=== PATIENT | male | born 1930 ===

== ENCOUNTER 2017-03-06 14:17 | Inpatient (IN) ==
[2017-03-06 15:10] LABS: Basophils % 0.2 % (0.0-0.8); Hematocrit 41.1 VOL% (42.0-52.0); Hemoglobin 13.8 GM/DL (14.0-18.0); Immature Granulocytes % 0.5 %; Immature Granulocytes Absolute 0.06 #; Lymphocytes # 0.5 10*3/uL (1.4-4.0); Lymphocytes % 4.2 % (21.2-54.2); Mean Corpuscular HGB Conc 33.6 GM/DL (32-36); Mean Corpuscular Hemoglobin 31 PG (27-34); Mean Corpuscular Volume 93.4 FL (87-102); Mean Platelet Volume 10.5 FL (9.6-12.0); Monocytes # 0.5 10*3/uL (0.11-0.8); Monocytes % 3.8 % (1.7-12.7); Neutrophils # 11.5 10*3/uL (1.4-7.4); Neutrophils % 91.3 % (38.7-73.9); Platelet Count 102 T/CUMM (130-400); Red Cell Distribution Width 15.3 % (9.3-17.3); White Blood Count 12.6 T/CUMM (4-12)
--- NOTE | 2017-03-06 15:15 | XRay Report ---
Single view the chest. Indication: Shortness of breath. Comparison: January 22, 2016. The heart is enlarged. Post median sternotomy. There is calcific plaque present within the aortic knob. The pulmonary vasculature is prominent. The interstitial lung markings are prominent. There are bilateral right greater than left pleural effusions. Mild atelectasis in the right lung base. Impression: Findings of congestive heart failure and mild right basilar atelectasis. PROCEDURE INTERPRETED AT [facility] DEPARTMENT OF RADIOLOGY Final Report Signed by: Dr. Nunu Pierre
[2017-03-06 15:27] LABS: Albumin 2.7 G/DL (3.4-5.0); Bilirubin,Total 1.3 MG/DL (0.2-1.0); Calcium 8.7 MG/DL (8.5-10.1); Osmolality,Calculated 285.4 MOS/KG (273-304); Total Protein 6.4 G/DL (6.4-8.3)
--- NOTE | 2017-03-06 15:32 | Ultrasound Report ---
Bilateral lower extremity venous Doppler with lombardi scale, Spectral Doppler and color-flow analysis performed and interpreted. Indication: Leg swelling Scanning over both common femoral veins, superficial femoral veins, greater saphenous veins and popliteal veins demonstrates normal compressibility, color flow, and augmentation. Impression: No evidence of DVT seen in either lower extremity. The Ultrasound images were captured and stored. PROCEDURE INTERPRETED AT [facility] DEPARTMENT OF RADIOLOGY Final Report Signed by: Dr. Nunu Pierre
--- NOTE | 2017-03-06 17:07 | Hospitalist History & Physical ---
<Bairon Persaud - Last Filed: 03/06/17 17:05> Assessment and Plan (1) Leukocytosis Status: Acute Assessment and plan: WBC slightly elevated. Daily CBC. Obtain blood cultures. UA.Lower extremity edema may be source. Consult wound care. Start empiric antibiotics. Current Visit: Yes (2) CHF (congestive heart failure) Status: Acute Assessment and plan: BNP > 5000. CXR showed chf. IV lasix ordered. Echo ordered. Current Visit: Yes (3) HTN (hypertension) Status: Acute Assessment and plan: Pt. stable Current Visit: No (4) Lower extremity edema Status: Acute Assessment and plan: Questionable cellulitis. Treat with IV antibiotics. Consult wound care Current Visit: Yes (5) JAKE (acute kidney injury) Status: Acute Assessment and plan: Daily BMPs. Renal us. Order UA. Current Visit: Yes History of Present Illness Chief complaint: right leg edema History of present illness: Mr. Aguilar is a 86 year old male who was transferred to the ED via EMS from [facility] for further evaluation of right leg pain sudden onset of last night. Pt. states that he has been having problems with fluid buildup for quite some time however last night the right leg worsened. 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 At that point he was unable to move his leg and stated that he was barely able to walk. Patient denies any shortness of breath, cough, chest pain , or vomiting but report mild nausea. Pt. denies any complaints at this time. On evaluation in the ED, abnormal labs include WBC of 12.6, BUN 32, creatinine 1.4, and BNP greater than 5000. Chest x-ray revealed congestive heart failure and mild right basilar atelectasis. An ultrasound was also ordered to rule out DVT. It was negative. Patient's case has been discussed with Dr. Cody in fast track and Dr. Baker hospitalist. Pt will be admitted to the hospitalist service for further evaluation and treatment of bilateral lower extremity edema , CHF exacerbation, and acute kidney injury. CODE STATUS has been discussed with patient and he has chosen to be a full code. Home Medications Medication Instructions Recorded Confirmed Type RX: Aspirin [Ecotrin] 325 mg PO DAILY 01/22/16 01/22/16 History RX: Atorvastatin [Lipitor] 40 mg PO BEDTIME 01/22/16 01/22/16 History RX: Brimonidine 0.15% Oph Soln 1 drops BOTH EYES BID 01/22/16 01/22/16 History [Alphagan P 0.15% Oph Soln] RX: Cholecalciferol (Vitamin D3) 50,000 unit PO DIRECTED 01/22/16 01/22/16 History [Vitamin D3] RX: Colesevelam [Welchol] 1,875 mg PO BID W/MEALS 01/22/16 01/22/16 History RX: Dorzolamide/Timolol Oph Soln 1 drop BOTH EYES BID 01/22/16 01/22/16 History [Cosopt] RX: Finasteride 5 mg PO DAILY 01/22/16 01/22/16 History RX: Mupirocin 2% Oint [Bactroban 1 applic TOP TID 01/22/16 01/22/16 History 2% Oint] RX: Polyethylene Glycol Powder 17 gm PO DAILY 01/22/16 01/22/16 History [Miralax] RX: Tamsulosin [Flomax] 0.4 mg PO DAILY 01/22/16 01/22/16 History RX: Triamcinolone 0.1% Cream 1 applic TOP BID PRN 01/22/16 01/22/16 History [Kenalog 0.1% Cream] RX: Brimonidine 0.15% Oph Soln 1 drop BOTH EYES BID ophthalmic 01/25/16 Rx [Alphagan P 0.15% Oph Soln] solution RX: Carvedilol [Coreg] 3.125 mg PO BID #60 tablet 01/25/16 Rx RX: Diphenoxylate/Atrop 2.5-0.025 1 tablet PO Q4H PRN #20 tablet 01/25/16 Rx [Lomotil Tab] RX: Dorzolamide/Timolol Oph Soln 1 drop BOTH EYES BID ophthalmic 01/25/16 Rx [Cosopt] solution RX: Lisinopril [Prinivil] 5 mg PO DAILY #30 tablet 01/25/16 Rx Allergies Allergy/AdvReac Type Severity Reaction Status Date / Time No Known Allergies Allergy Verified 01/22/16 12:19 Medical,Surgical,& Family Hx - Medical History Cardio: History of: Cardiac Dysrhythmia (afib), Hypertension Endocrine: History of: Dyslipidemia - Family History Family History: noncontributory - Social History Smoking Status: Never smoker Frequency of Alcohol Use: None Marital Status: Single Lives With:: Alone Functional capacity: independent ambulation 12 point system: reviewed and no additional remarkable complaints except as stated - Constitutional Constitutional: Absent: chills, fever(s) - EENT Ears: Present: decreased hearing - Cardiovascular Cardiovascular: Absent: chest pain at rest - Respiratory Respiratory: Absent: cough - Genitourinary Genitourinary: Present: difficulty urinating - Neurological Neurological: Present: confusion, memory loss Exam - Constitutional Vitals: Period Temp Pulse Resp BP Sys/[place]un[place] Pulse Ox Last 24 Hr 99.1 F 72 20 126/54 97 General appearance: normal weight, no acute distress - Head Head exam: Present: normal inspection, normocephalic - Eye Eye exam: Present: EOMI Pupils: Present: CHARITY - ENT ENT exam: Present: normal exam - Respiratory Respiratory exam: Present: clear to auscultation bilaterally. Absent: wheezes - Cardiovascular Cardiovascular exam: Present: bradycardia - GI/Abdominal GI/Abdominal exam: Present: normal bowel sounds, soft. Absent: tenderness - Extremities Exam Extremities exam: Present: normal capillary refill, edema (right greater than left. pt has pitting edema noted.). Absent: normal inspection - Neurological Exam Neurological exam: Present: alert, oriented X3 - Psychiatric Psychiatric exam: Present: normal affect, normal mood - Skin Skin exam: Present: normal color, warm, other (BLE are warm to touch; RLE is reddened. 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 Patient presents with increased BLE edema. Being admitted with CHF exacerbation. BNP is elevated. Patient is also noted to have a mild leukocytosis and warmth and redness to his BLE, R>L. Will start teflaro. Patient also noted to have JAKE. Last creatinine in our system one year ago was normal. Will admit to telemetry. Start IV lasix. Obtain echo. Exam - Constitutional Vitals: Period Temp Pulse Resp BP Sys/Lagunas Pulse Ox Last 24 Hr 99.1 F-99.1 F 72-72 20-20 126-126/54-54 97 Results - Labs CBC & BMP: 03/06/17 15:01 03/06/17 15:01
[2017-03-06] MEDS ORDERED: ACETAMINOPHEN 325 MG TABLET PO PRN (19:40)
[2017-03-06 20:39] LABS: Apearance,Urine Slightly Hazy (Clear); Bacteria,Urine Occasional /HPF (Few); Bilirubin,Urine Negative (Negative); Blood, Urine Negative (Negative); Glucose,Urine (UA) Negative (Negative); Ketones,Urine Negative (Negative); Mucus,Urine Occasional /LPF (Occasional); Nitrite,Urine Negative (Negative); Protein,Urine 30 MG/DL; RBC,Urine 1 /HPF (0-4); Sperm,Urine Occasional /HPF (Negative); Squamous Epithelial Cell,Urine Occasional /HPF (0-10); Urine Color Yellow (Yellow); Urine Specific Gravity 1.015 (1.001-1.035); Urine Urobilinogen < 2.0 EU/DL (0.2-1.0); WBC,Urine 1 /HPF (0-6)
[2017-03-06] MEDS: CEFTAROLINE 600 MG in SODIUM CHLORIDE 0.9% 100 ML IV SCH (21:44)
[2017-03-07 06:10] LABS: Basophils % 0.2 % (0.0-0.8); Hematocrit 41.8 VOL% (42.0-52.0); Immature Granulocytes % 0.7 %; Immature Granulocytes Absolute 0.09 #; Lymphocytes # 0.6 10*3/uL (1.4-4.0); Mean Corpuscular HGB Conc 33.5 GM/DL (32-36); Mean Corpuscular Hemoglobin 31 PG (27-34); Mean Corpuscular Volume 92.7 FL (87-102); Mean Platelet Volume 11.2 FL (9.6-12.0); Monocytes # 0.7 10*3/uL (0.11-0.8); Monocytes % 5.5 % (1.7-12.7); Neutrophils # 11.2 10*3/uL (1.4-7.4); Neutrophils % 88.6 % (38.7-73.9); Platelet Count 101 T/CUMM (130-400); Red Blood Count 4.51 MC/CUMM (3.8-5.5); Red Cell Distribution Width 15.6 % (9.3-17.3); White Blood Count 12.6 T/CUMM (4-12)
[2017-03-07 06:52] LABS: Calcium 8.4 MG/DL (8.5-10.1); Magnesium 2.1 MG/DL (1.8-2.4); Osmolality,Calculated 289.1 MOS/KG (273-304); Potassium 4.2 MMOL/L (3.5-5.1); Risk Ratio 1.83; Thyroid Stimulating Hormone 0.464 uIU/ml (0.358-3.74); VLDL CHOLESTEROL 14.8 MG/DL
[2017-03-07 08:13] LABS: Band Neutrophils 24 % (0-10); Lymphocytes 2 % (20-55); Segmented Neutrophils 71 % (50-85); Total Cells Counted 100
[2017-03-07 08:14] LABS: Burr Cells 2+; Hypochromasia 1+; Platelet Estimate Decreased
[2017-03-07] MEDS: CEFTAROLINE 600 MG in SODIUM CHLORIDE 0.9% 100 ML IV SCH ×2 (09:27→22:01)
[2017-03-07] MEDS: FUROSEMIDE 40 MG/4 ML VIAL IV SCH ×2 (09:28→16:38)
--- NOTE | 2017-03-07 10:09 | EKG Report ---
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 : 1930 Requested by: Bairon Persaud Order Number: [id number] Reading MD: FREEMAN BETANCUR Intervals [place] Rate: 81 P: 79 TN: 130 QRS: 126 QRSD: 113 T: -73 QT: 410 QTc: 447 Interpretive Statements SINUS RHYTHM WITH OCCASIONAL SUPRAVENTRICULAR PREMATURE COMPLEXES MODERATE INTRAVENTRICULAR CONDUCTION DELAY POSSIBLE RIGHT VENTRICULAR HYPERTROPHY ST DEVIATION AND MODERATE T-WAVE ABNORMALITY, CONSIDER LATERAL ISCHEMIA ST DEVIATION AND MODERATE T-WAVE ABNORMALITY, CONSIDER INFERIOR ISCHEMIA Electronically Signed On 03-07-17 11:22:14 CDT by FREEMAN BETANCUR [email or web address]
--- NOTE | 2017-03-07 14:53 | Ultrasound Report ---
Bilateral renal ultrasound Indication: Bilateral renal masses. Comparison: January 22, 2016. Also, a remote exam from March 01, 2008. The kidneys are normal in size. The right kidney measures 12.0 x 5.7 x 6.2 cm in the left measures 9.3 x 4.6 x 3.4 cm. At the midpole of the right kidney there is a 3.5 x 2.8 cm cyst, and a 1.2 x 1.5 cm cyst. At the lower pole of the right kidney there is a 4.6 x 5.2 x 4.7 cm cyst. Superior to the right kidney, and separate from it, there is a 3.9 x 4.1 x 3.6 cm solid mass. This was present on the previous CT of January 22, 2016, and measured 4.4 x 3.7 cm at that time. Therefore, in the 1 year since the previous exam, it has not grown significantly. It was visible on the 2007 exam, and measured significantly smaller at 18 mm. The left kidney contains a 1.9 x 2.1 cm cyst, and a 2.7 x 2.5 cm solid mass. This solid mass has features suspicious for renal cell carcinoma, and it has not changed significantly in size. It was not present on the 2008 exam. No hydronephrosis. No nephrolithiasis. Impression: There is a nonspecific solid mass superior to the right kidney, which has been shown to be separate from the kidney and adrenal gland on previous CT. This mass is gradually increasing in size compared to 2008, but is stable compared to last year. There is a solid mass having features suspicious for renal cell at the lower pole of the left kidney, which has not changed in size. The Ultrasound images were captured and stored. PROCEDURE INTERPRETED AT [facility] DEPARTMENT OF RADIOLOGY Final Report Signed by: Dr. Nunu Pierre
--- NOTE | 2017-03-07 17:51 | Hospitalist Progress Note ---
Assessment and Plan (1) Renal mass Status: Acute Assessment and plan: Present on multiple previous imaging studies, CT A/P 01/2016 with multiple probable renal cyst but also with a solid enhancing lesion of the left kidney suspicious for neoplastic process Patient denies any knowledge of this although discharge summary at that time reports that urology was consulted and he was to follow-up with them in clinic Will re-consult urology Current Visit: Yes (2) HTN (hypertension) Status: Acute Current Visit: No (3) Dyslipidemia Status: Acute Current Visit: No (4) CHF (congestive heart failure) Status: Acute Assessment and plan: Repeat BNP in the morning Clinically improving Current Visit: Yes (5) Leukocytosis Status: Acute Assessment and plan: Possible cellutitis, continue teflaro Current Visit: Yes (6) Right hip pain Status: Acute Assessment and plan: x-ray Current Visit: Yes Hospitalist: Subjective Interval history: No acute events overnight. He reports that his legs feel a little better but now reports a right hip pain and a fall about a week ago. Exam - Constitutional Vitals: Period Temp Pulse Resp BP Sys/Lagunas Pulse Ox Last 24 Hr 98.7 F-100.4 F 68-88 16-20 120-152/51-84 88-97 General appearance: normal weight - Head Head exam: Present: normocephalic, atraumatic - Eye Eye exam: Present: EOMI Pupils: Present: CHARITY - ENT ENT exam: Present: normal exam - Neck Neck exam: Present: normal inspection - Respiratory Respiratory exam: Present: clear to auscultation bilaterally. Absent: rhonchi, wheezes - Cardiovascular Cardiovascular exam: Present: regular rate and rhythm - GI/Abdominal GI/Abdominal exam: Present: normal bowel sounds, soft. Absent: tenderness, rebound - Extremities Exam Extremities exam: Present: edema - Back Exam Back exam: Present: normal inspection - Neurological Exam Neurological exam: Present: alert, oriented X3 - Psychiatric Psychiatric exam: Present: normal affect, normal mood - Skin Skin exam: Present: warm, intact Results - Labs CBC & BMP: 03/07/17 04:55 03/07/17 04:55
--- NOTE | 2017-03-07 18:58 | XRay Report ---
AP pelvis with 2 additional views of the right hip. Indication: Fall a few days ago, with persistent pain. Degenerative changes are noted in the lower lumbar spine. There is a right iliac stent. Vascular calcifications are noted. There is narrowing of the inferior medial hip joint spaces bilaterally. There is acetabular spurring. The femoral head contours are well maintained. There is linear lucency suspicious for acute nondisplaced fracture through the right ischiopubic ramus. The pubic symphysis and SI joints are of normal width. Impression: Findings suspicious for nondisplaced acute fracture through the right ischiopubic ramus. PROCEDURE INTERPRETED AT [facility] DEPARTMENT OF RADIOLOGY Final Report Signed by: Dr. Nunu Pierre
[2017-03-07] MEDS: ATORVASTATIN 40 MG TABLET PO SCH (22:02)
[2017-03-07] MEDS: COLESEVELAM 625 MG TABLET PO SCH (22:02)
[2017-03-07] MEDS: CARVEDILOL 3.125 MG TABLET PO SCH (22:02)
[2017-03-08 06:15] LABS: Basophils % 0.3 % (0.0-0.8); Eosinophils % 0.1 % (0.00-10.9); Hematocrit 40.7 VOL% (42.0-52.0); Hemoglobin 13.7 GM/DL (14.0-18.0); Immature Granulocytes % 0.5 %; Immature Granulocytes Absolute 0.06 #; Lymphocytes # 0.7 10*3/uL (1.4-4.0); Lymphocytes % 5.9 % (21.2-54.2); Mean Corpuscular HGB Conc 33.7 GM/DL (32-36); Mean Corpuscular Hemoglobin 31 PG (27-34); Mean Corpuscular Volume 91.7 FL (87-102); Mean Platelet Volume 11.6 FL (9.6-12.0); Monocytes # 0.7 10*3/uL (0.11-0.8); Monocytes % 6.5 % (1.7-12.7); Neutrophils # 9.7 10*3/uL (1.4-7.4); Neutrophils % 86.7 % (38.7-73.9); Platelet Count 101 T/CUMM (130-400); Red Blood Count 4.44 MC/CUMM (3.8-5.5); White Blood Count 11.2 T/CUMM (4-12)
[2017-03-08 06:55] LABS: Calcium 8.1 MG/DL (8.5-10.1); Magnesium 1.9 MG/DL (1.8-2.4); Osmolality,Calculated 287.4 MOS/KG (273-304); Potassium 2.9 MMOL/L (3.5-5.1)
[2017-03-08 08:02] LABS: Hypochromasia Slight; Microcytosis Slight
--- NOTE | 2017-03-08 08:54 | ECHO Report ---
Aquiles Aguilar Exam Date: 03/07/2017 08:29 Referring Physician: Technologist: devin Reid ARDMS, RVT Age: 86 Ht (in): 73 Wt (lb): 164 Gender: M Exam Location: [facility] Echo Indications: Essential (primary) hypertension, CHF, Lower extremity edema, JAKE, Leukocytosis BP: 136 / 84 HR: 80 Rhythm: Sinus Technical Quality: Good IMPRESSIONS Mildly increased left ventricular cavity size. Normal left ventricular wall thickness. Left ventricular ejection fraction is estimated at 30 %. Mildly increased right ventricular size. The right atrium is mildly enlarged. The left atrium is mildly enlarged. Moderately thickened mitral valve. Mild-moderate mitral valve regurgitation. The aortic valve is trileaflet and has normal motion. Mild aortic valve calcification. No aortic valve stenosis. No aortic valve regurgitation. Thickened tricuspid valve. [id number] tricuspid valve regurgitation. Tricuspid regurgitation velocities suggest a PAP of 80 mmHg. Morphologically normal pulmonic valve. Moderate pulmonary valve stenosis. Normal pericardium without effusion. Normal ascending aorta dimension. MEASUREMENTS (Male / Female) Normal Values 2D ECHO LV Diastolic Diameter PLAX 6.0 cm 4.2 - 5.9 / 3.9 - 5.3 cm LV Systolic Diameter PLAX 5.2 cm LV Fractional Shortening PLAX 14.0 % IVS Diastolic Thickness 0.7 cm 0.6 - 1.0 / 0.6 - 0.9 cm LVPW Diastolic Thickness 1.0 cm 0.6 - 1.0 / 0.6 - 0.9 cm RV Internal Dim ED PLAX 4.0 cm Aortic Root Diameter 3.5 cm LA Systolic Diameter LX 4.7 cm 3.0 - 4.0 / 2.7 - 3.8 cm DOPPLER TR Peak Velocity 417.0 cm/s TR Peak Gradient 69.6 mmHg FINDINGS Left Ventricle Mildly increased left ventricular cavity size. Normal left ventricular wall thickness. Left ventricular ejection fraction is estimated at 30 %. Right Ventricle Mildly increased right ventricular size. Right Atrium The right atrium is mildly enlarged. Left Atrium The left atrium is mildly enlarged. Mitral Valve Moderately thickened mitral valve. Mild-moderate mitral valve regurgitation. Aortic Valve The aortic valve is trileaflet and has normal motion. Mild aortic valve calcification. No aortic valve stenosis. No aortic valve regurgitation. Tricuspid Valve Thickened tricuspid valve. Mbkb-[id number]-fgubogip tricuspid valve regurgitation. Tricuspid regurgitation velocities suggest a PAP of 80 mmHg. Pulmonic Valve Morphologically normal pulmonic valve. Moderate pulmonary valve stenosis. Pericardium Normal pericardium without effusion. Aorta Normal ascending aorta dimension. Abdulaziz Bran MD (Electronically Signed) Final Date: 08 March 2017 08:52
[2017-03-08] MEDS: COLESEVELAM 625 MG TABLET PO SCH ×3 (09:40→22:01)
[2017-03-08] MEDS: LISINOPRIL 10 MG TABLET PO SCH (09:40)
[2017-03-08] MEDS: FINASTERIDE 5 MG TABLET PO SCH (09:41)
[2017-03-08] MEDS: ASPIRIN EC 81 MG TABLET PO SCH (09:41)
[2017-03-08] MEDS: TAMSULOSIN 0.4 MG CAPSULE PO SCH (09:50)
[2017-03-08] MEDS: CARVEDILOL 3.125 MG TABLET PO SCH ×2 (09:50→22:02)
[2017-03-08] MEDS: CEFTAROLINE 600 MG in SODIUM CHLORIDE 0.9% 100 ML IV SCH ×2 (09:50→22:08)
[2017-03-08] MEDS: FUROSEMIDE 40 MG/4 ML VIAL IV SCH ×2 (09:50→16:09)
--- NOTE | 2017-03-08 10:31 | Hospitalist Progress Note ---
<Bairon Persaud - Last Filed: 03/08/17 10:23> Assessment and Plan (1) Leukocytosis Status: Acute Assessment and plan: WBC slightly elevated. Daily CBC. Obtain blood cultures. UA.Lower extremity edema may be source. Consult wound care. Start empiric antibiotics. 03/08 WBC 11.2 today. Current Visit: Yes (2) CHF (congestive heart failure) Status: Acute Assessment and plan: BNP > 5000. CXR showed chf. IV lasix ordered. Echo ordered. 03/08 BNP 2469 today. Continue to diurese. Current Visit: Yes (3) HTN (hypertension) Status: Acute Assessment and plan: Pt. stable. Home meds have been restarted. Current Visit: No (4) Lower extremity edema Status: Acute Assessment and plan: Questionable cellulitis. Treat with IV antibiotics. Consult wound care 03/08 Pt.'s LE edema has improved. Current Visit: Yes (5) JAKE (acute kidney injury) Status: Acute Assessment and plan: Daily BMPs. Renal us. Order UA. 03/08 Creatinine has improved from 1.4 to 1. Renal us revealed 'specific solid mass superior to the right kidney, which has been shown to be separate from the kidney and adrenal gland on previous CT' 'increased in size compared to 2007 with stable compared to last year' We will consult urology in am. Current Visit: Yes Hospitalist: Subjective Interval history: Patient seen and examined this morning. He is alert and oriented without any complaints. Teflaro IV infusing during the encounter. No acute distress noted. Bilateral lower extremity edema continues to improve. Continue to follow. Exam - Constitutional Vitals: Period Temp Pulse Resp BP Sys/[place]un[place] Pulse Ox Last 24 Hr 97.5 F-100.4 F 62-81 14-20 120-146/42-71 87-95 General appearance: normal weight, no acute distress - Head Head exam: Present: normal inspection, normocephalic - Eye Eye exam: Present: EOMI Pupils: Present: CHARITY - Respiratory Respiratory exam: Present: clear to auscultation bilaterally. Absent: wheezes - Cardiovascular Cardiovascular exam: Present: regular rate and rhythm - GI/Abdominal GI/Abdominal exam: Present: normal bowel sounds, soft. Absent: tenderness - Extremities Exam Extremities exam: Present: normal capillary refill, full ROM, edema - Neurological Exam Neurological exam: Present: alert, oriented X3 - Psychiatric Psychiatric exam: Present: normal affect, normal mood - Skin Skin exam: Present: normal color, warm, dry Results - Labs CBC & BMP: 03/08/17 05:13 03/08/17 05:13 Lab Results: I have reviewed the past 24 hour labs <Mady Baker - Last Filed: 03/08/17 17:33> Assessment and Plan (1) Renal mass Status: Acute Current Visit: Yes (2) HTN (hypertension) Status: Acute Current Visit: No (3) Dyslipidemia Status: Acute Current Visit: No (4) CHF (congestive heart failure) Status: Acute Current Visit: Yes (5) Leukocytosis Status: Acute Current Visit: Yes (6) Right hip pain Status: Acute Current Visit: Yes Hospitalist: Subjective Interval history: 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 BLE edema improving. Now reports that he fell 2-3 weeks ago but his hip pain started 4 days ago. Exam - Constitutional Vitals: Period Temp Pulse Resp BP Sys/[place]un[place] Pulse Ox Last 24 Hr 97.5 F-99.2 F 62-81 14-20 120-146/42-67 87-95 Results - Labs CBC & BMP: 03/08/17 05:13 03/08/17 05:13
[2017-03-08] MEDS: ATORVASTATIN 40 MG TABLET PO SCH (22:02)
[2017-03-09] MEDS: POTASSIUM CHLORIDE RIDER 10 MEQ in PREMIX 1 EACH IV PRN ×5 (01:13→11:22)
[2017-03-09 06:06] LABS: Basophils % 0.1 % (0.0-0.8); Eosinophils % 0.4 % (0.00-10.9); Hematocrit 37.9 VOL% (42.0-52.0); Hemoglobin 12.7 GM/DL (14.0-18.0); Immature Granulocytes % 0.5 %; Immature Granulocytes Absolute 0.04 #; Lymphocytes # 0.7 10*3/uL (1.4-4.0); Lymphocytes % 8.5 % (21.2-54.2); Mean Corpuscular HGB Conc 33.5 GM/DL (32-36); Mean Corpuscular Hemoglobin 31 PG (27-34); Mean Corpuscular Volume 92.2 FL (87-102); Mean Platelet Volume 11.6 FL (9.6-12.0); Monocytes # 0.7 10*3/uL (0.11-0.8); Neutrophils # 6.7 10*3/uL (1.4-7.4); Neutrophils % 82.5 % (38.7-73.9); Platelet Count 104 T/CUMM (130-400); Red Blood Count 4.11 MC/CUMM (3.8-5.5); Red Cell Distribution Width 14.6 % (9.3-17.3); White Blood Count 8.2 T/CUMM (4-12)
[2017-03-09 06:35] LABS: Band Neutrophils 4 % (0-10); Eosinophils 1 % (0-10); Giant Platelets Few; Hypochromasia 1+; Lymphocytes 10 % (20-55); Microcytosis Slight; Ovalocytes Slight; Platelet Estimate Decreased; Segmented Neutrophils 77 % (50-85); Total Cells Counted 100
[2017-03-09 06:38] LABS: Calcium 7.7 MG/DL (8.5-10.1); Magnesium 1.7 MG/DL (1.8-2.4)
[2017-03-09] MEDS: FUROSEMIDE 40 MG/4 ML VIAL IV SCH ×2 (08:56→16:27)
[2017-03-09] MEDS: COLESEVELAM 625 MG TABLET PO SCH ×3 (08:57→21:33)
[2017-03-09] MEDS: LISINOPRIL 10 MG TABLET PO SCH (08:57)
[2017-03-09] MEDS: FINASTERIDE 5 MG TABLET PO SCH (08:57)
[2017-03-09] MEDS: POTASSIUM CHLORIDE 20 MEQ TABLET PO PRN ×4 (08:58→16:14)
[2017-03-09] MEDS: TAMSULOSIN 0.4 MG CAPSULE PO SCH (08:59)
[2017-03-09] MEDS: CARVEDILOL 3.125 MG TABLET PO SCH (08:59)
[2017-03-09] MEDS: ASPIRIN EC 81 MG TABLET PO SCH (08:59)
--- NOTE | 2017-03-09 10:58 | Orthopedic Consult Note ---
History of Present Illness Chief complaint: right hip pain History of present illness: Mr. Aguilar is a 86 year old male who fell approximately 3 weekends ago. The patient states that he was able to hold onto the door frame while at [employer] and slide onto his buttock. 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 He states that he was symptom-free until and he developed nonspecific right leg pain, by Thursday, the patient felt that his symptoms had localized to his posterior hip. Radiographs were obtained and are suspicious for possible inferior pelvic rami fracture. The patient has been admitted for congestive heart failure and right lower extremity cellulitis. He has had positive blood cultures for gpc in just one tube and a mild leukocytosis. He had one low-grade temperature, but has otherwise been afebrile. He is not complaining of any groin pain. Home Medications Medication Instructions Recorded Confirmed Type Aspirin [Ecotrin] 81 mg PO DAILY 01/22/16 03/07/17 History Atorvastatin [Lipitor] 40 mg PO BEDTIME 01/22/16 03/07/17 History Colesevelam [Welchol] 1,875 mg PO TID 01/22/16 03/07/17 History Finasteride 5 mg PO DAILY 01/22/16 03/07/17 History Tamsulosin [Flomax] 0.4 mg PO DAILY 01/22/16 03/07/17 History Carvedilol [Coreg] 3.125 mg PO BID #60 tablet 01/25/16 03/07/17 Rx Clopidogrel [Plavix] 75 mg PO DAILY 03/07/17 03/07/17 History Lisinopril [Prinivil] 40 mg PO DAILY 03/07/17 03/07/17 History Allergies Allergy/AdvReac Type Severity Reaction Status Date / Time No Known Allergies Allergy Verified 01/22/16 12:19 12 point system: reviewed and no additional remarkable complaints except as stated Medical,Surgical,& Family Hx - Medical History Cardio: History of: Cardiac Dysrhythmia (afib), Hypertension Endocrine: History of: Dyslipidemia - Surgical History Cardiac Surgeries: Sugical HX of: Cardiac Surgery (2013 open heart) Thoracic Surgeries: Patient denies;: Organ Transplant - Social History Smoking Status: Never smoker Frequency of Alcohol Use: None Type of Drug Use: None Exam - Constitutional Vitals: Period Temp Pulse Resp BP Sys/[place] Pulse Ox Last 24 Hr 97.4 F-99.0 F 60-81 12-20 109-154/45-65 78-98 Alert and oriented Right lower extremity shows pitting edema and mild erythema involving his distal leg. CHRISTINE's test is mildly positive. Otherwise, his right hip has no pain throughout range of motion. He is able to perform a straight leg raise without pain. He is nontender over his greater trochanter, anterior and posterior proximal femur, superior and inferior pelvic rami, iliac crests. Mildly tender within his posterior gluteals. There is no fluctuance, erythema or induration. Radiographs pelvis, AP and lateral right hip were reviewed. They demonstrate mild enthesiopathy about his iliac crest and rami and low lumbar spondylosis. Impression: Right gluteal contusion. Right leg cellulitis Plan: I reviewed the x-rays and they are not conclusive for fracture. The patient on physical exam certainly is nontender over the suspected area on the radiographs. Exam also does not suggest hip septic arthritis. I have advised observation and initiation of physical therapy. The patient can be weightbearing as tolerated with walker protection. More than likely, the leukocytosis is secondary to his right lower extremity cellulitis. Results - Labs CBC & BMP: 03/09/17 05:21 03/09/17 05:21 Assessment and Plan (1) Contusion, hip Status: Acute Current Visit: Yes Qualifiers: Encounter type: initial encounter Laterality: right Qualified Code(s): S70.01XA - Contusion of right hip, initial encounter
[2017-03-09] MEDS ORDERED: ZINC OXIDE PASTE 113 GM TUBE TOP PRN (11:02)
--- NOTE | 2017-03-09 13:58 | Hospitalist Progress Note ---
Assessment and Plan (1) Renal mass Status: Acute Assessment and plan: Present on multiple previous imaging studies, CT A/P 01/2016 with multiple probable renal cyst but also with a solid enhancing lesion of the left kidney suspicious for neoplastic process Patient denies any knowledge of this although discharge summary at that time reports that urology was consulted and he was to follow-up with them in clinic It appears that he has been following with Dr. Ayoub for this, he last saw him earlier this month Current Visit: Yes (2) HTN (hypertension) Status: Chronic Current Visit: No (3) Dyslipidemia Status: Acute Current Visit: No (4) CHF (congestive heart failure) Status: Chronic Assessment and plan: EF 30% Improving Continue IV lasix Will consult cardiology, don't see a previous echo in our system, patient is a poor historian Current Visit: Yes (5) Leukocytosis Status: Acute Assessment and plan: 2/2 cellutitis, continue teflaro Current Visit: Yes (6) Right hip pain Status: Acute Assessment and plan: xray with possible fracture Ortho consulted, doesn't believe there is a fracture Starting PT Current Visit: Yes (7) Cellulitis Status: Acute Assessment and plan: Of BLE Continue teflaro leukocytosis improving Current Visit: Yes Hospitalist: Subjective Interval history: No acute events overnight. Patient feels that his LE swelling is getting better. He has a positive blood culture, 1 of 2, possible contaminant. Repeated. Exam - Constitutional Vitals: Period Temp Pulse Resp BP Sys/[place] Pulse Ox Last 24 Hr 97.4 F-99.0 F 60-81 12-20 109-154/45-76 78-98 General appearance: normal weight - Head Head exam: Present: normocephalic, atraumatic - Eye Eye exam: Present: EOMI Pupils: Present: CHARITY - ENT ENT exam: Present: normal exam - Neck Neck exam: Present: normal inspection - Respiratory Respiratory exam: Present: clear to auscultation bilaterally. Absent: wheezes - Cardiovascular Cardiovascular exam: Present: regular rate and rhythm - GI/Abdominal GI/Abdominal exam: Present: normal bowel sounds, soft. Absent: tenderness, rebound - Extremities Exam Extremities exam: Present: normal inspection - Back Exam Back exam: Present: normal inspection - Neurological Exam Neurological exam: Present: alert, oriented X3 - Psychiatric Psychiatric exam: Present: normal affect, normal mood - Skin Skin exam: Present: warm, intact Results - Labs CBC & BMP: 03/09/17 05:21 03/09/17 05:21
[2017-03-09] MEDS: CEFTAROLINE 600 MG in SODIUM CHLORIDE 0.9% 100 ML IV SCH ×2 (15:29→21:33)
--- NOTE | 2017-03-09 16:04 | Cardiology Progress Note ---
Catalino Jung Lesley, CHIDI, am scribing for, and in the presence of, Kasandra Cerda NP 15:53. Assessment and Plan - Time spent with patient Time spent with patient: Greater than 30 minutes (Record review, assessment, and documentation) (1) Hypokalemia Status: Acute Assessment and plan: SEE PLAN LISTED BELOW Current Visit: Yes (2) HTN (hypertension) Status: Chronic Assessment and plan: SEE PLAN LISTED BELOW Current Visit: No (3) CAD (coronary artery disease) of artery bypass graft Status: Chronic Assessment and plan: SEE PLAN LISTED BELOW Current Visit: No (4) CHF (congestive heart failure) Status: Acute Assessment and plan: SEE PLAN LISTED BELOW Current Visit: Yes Qualifiers: Congestive heart failure type: systolic Congestive heart failure chronicity : acute on chronic Qualified Code(s): I50.23 - Acute on chronic systolic ( congestive) heart failure (5) Ischemic cardiomyopathy Status: Chronic Assessment and plan: SEE PLAN LISTED BELOW Current Visit: Yes (6) Hypomagnesemia Status: Acute Assessment and plan: SEE PLAN LISTED BELOW Current Visit: Yes (7) PAF (paroxysmal atrial fibrillation) Status: Acute Assessment and plan: SEE PLAN OF CARE LISTED BELOW Current Visit: Yes (8) Dyslipidemia Status: Chronic Assessment and plan: SEE PLAN OF CARE LISTED BELOW Current Visit: Yes Cardiology - PN: Subj 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 Hadley Mr. Aguilar is an 86-year-old male, transferred to [facility] via EMS from [facility] for evaluation of right leg pain. The patient has been diagnosed and treated for congestive heart failure and right leg cellulitis. DVT was ruled out by ultrasound. 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 Cardiac history significant for ischemic dilated cardiomyopathy, CAD, paroxysmal atrial fibrillation, hypertension, former smoker, history of coronary artery bypass graft 3, abnormal EKG. Echocardiogram reveals LVEF 30%. Previous TRUDY done 10/06 at [facility], revealed EF of 20-25%. The patient denies dyspnea or chest pain today. He did well overnight. Vital signs remained stable, continuous telemetry monitoring reveals frequent ventricular ectopy. Hypokalemia noted, and potassium replacement protocol. Creatinine 1.1, magnesium 1.7. Plan to recheck electrolytes and increase his daily potassium intake. IMPRESSION/PLAN: 1. ISCHEMIC DILATED CARDIOMYOPATHY - EF 30%. Tolerating YASMIN, betablocker. Adjust accordingly. Patient may be a candidate for ICD. I will obtain records from [facility] and review. 2. CAD - s/p CABG X 3, ASA, beta becka, ACEI, lipid lowering agent 3. HYPOKALEMIA - postassium replacement protocol, recheck K. 4. HYPOMAGNESEMIA - magnesium replacement protocol, recheck Mg. 5. HYPERTENSION - continue meds and adjust accordingly. 6. CONGESTIVE HEART FAILURE - Acute on chronic, secondary to systolic dysfunction (EF 30%), NYHA Class III. Continue diuresis, weight decreased by 6 # since admission. 7. DYSLIPIDEMIA - continue lipid lowering agent. 8. PAF - intermittent episodes atrial fibrillation. Not on anti-coagulation. Will obtain records and review for contraindications to NOAC. Exam (Progress Note) - Constitutional Vitals: Period Temp Pulse Resp BP Sys/[place] Pulse Ox Last 24 Hr 97.4 F-99.0 F 60-81 12-20 109-154/45-76 78-98 Exam: General: [Appears well with no apparent distress.] [Pleasant and cooperative. ] [Appears comfortable.] HEENT: [PERRL, normocephalic, atraumatic]. [Mucous membranes moist.] [No jaundice noted.] [Conjunctiva moist and clear, sclerae anicteric.] Neck: [No JVD/HJR, no thyromegaly or lymphadenopathy noted.] No carotid bruit appreciated. Cardiac: Irregularly irregular rhythm, controlled rate. No murmur rub or gallop. Lungs: Clear to auscultation without accessory muscle use to assist the respiratory pattern. Oxygen in use via nasal cannula as needed. Abdomen: Soft, bowel sounds normoactive. Nontender and nondistended. No abdominal bruit or thrill noted. No masses noted. Musculoskeletal: No fluid collection. Full range of motion is noted. Extremities: No clubbing, cyanosis noted. No edema noted. Upper extremity pulses 2+. Lower extremity pulses 2+. Capillary refill less than 3 seconds. Skin: Warm and dry. No unusual lesions or rashes. No skin breakdown appreciated. Neuro: Awake, alert and oriented 3. Moves all extremities well without hemiparesis or paralysis. No essential tremor is appreciated. Result/EKG - Labs CBC & BMP: 03/09/17 05:21 03/09/17 05:21 Lab Results: I have reviewed the past 24 hour labs Labs: Laboratory Results - last 24 hr 03/09/17 03/09/17 03/09/17 05:21 05:21 05:21 WBC 8.2 RBC 4.11 Hgb 12.7 L Hct 37.9 L MCV 92.2 MCH 31 MCHC 33.5 RDW 14.6 Plt Count 104 L MPV 11.6 Neut % (Auto) 82.5 H Lymph % (Auto) 8.5 L [place] % (Auto) 8.0 Eos % (Auto) 0.4 Baso % (Auto) 0.1 Neut # (Auto) 6.7 Lymph # (Auto) 0.7 L [place] # (Auto) 0.7 Eos # (Auto) 0.0 Baso # (Auto) 0.0 Total Counted 100 Immature Gran % 0.5 Nucleated RBC % 0.0 Immature Gran # 0.04 Segmented Neutrophils 77 Band Neutrophils 4 Lymphocytes 10 L Monocytes 8 Eosinophils 1 Nucleated RBCs # 0.00 Platelet Estimate Decreased Giant Platelets Few Immature Plt Fraction 0.0 Hypochromasia 1+ Microcytosis Slight Ovalocytes Slight Morphology Comment Sodium 143 Potassium 3.0 L Chloride 102 Carbon Dioxide 36 H Anion Gap 8.0 BUN 35 H Creatinine 1.10 GFR Calculation 70 BUN/Creatinine Ratio 31.00 H Glucose 114 H Calculated Osmolality 293.0 Calcium 7.7 L Magnesium 1.7 L B-Natriuretic Peptide 2229 H - Diagnostic Findings Procedure: Chest x-ray: report reviewed by me - EKG EKG results: interpreted by al EKG shows: sinus rhythm, atrial fibrillation Zaida Jung Bonnie E, NP, personally performed the services described in this documentation, ascribed by Abigail Bae NP in my presence, and it is both accurate and complete [id number] .
[2017-03-09] MEDS: ATORVASTATIN 40 MG TABLET PO SCH (21:33)
[2017-03-09] MEDS: CARVEDILOL 6.25 MG TABLET PO SCH ×2 (21:34→21:45)
[2017-03-10 05:28] LABS: Basophils % 0.3 % (0.0-0.8); Eosinophils % 0.5 % (0.00-10.9); Hematocrit 37.5 VOL% (42.0-52.0); Hemoglobin 12.5 GM/DL (14.0-18.0); Immature Granulocytes % 0.5 %; Immature Granulocytes Absolute 0.03 #; Lymphocytes # 0.7 10*3/uL (1.4-4.0); Lymphocytes % 11.4 % (21.2-54.2); Mean Corpuscular HGB Conc 33.3 GM/DL (32-36); Mean Corpuscular Hemoglobin 31 PG (27-34); Mean Corpuscular Volume 93.3 FL (87-102); Mean Platelet Volume 11.1 FL (9.6-12.0); Monocytes # 0.8 10*3/uL (0.11-0.8); Monocytes % 11.5 % (1.7-12.7); Neutrophils # 4.9 10*3/uL (1.4-7.4); Neutrophils % 75.8 % (38.7-73.9); Platelet Count 102 T/CUMM (130-400); Red Blood Count 4.02 MC/CUMM (3.8-5.5); Red Cell Distribution Width 14.4 % (9.3-17.3); White Blood Count 6.5 T/CUMM (4-12)
[2017-03-10 06:04] LABS: Calcium 7.8 MG/DL (8.5-10.1); Magnesium 1.7 MG/DL (1.8-2.4); Osmolality,Calculated 294.8 MOS/KG (273-304); Potassium 3.6 MMOL/L (3.5-5.1)
[2017-03-10] MEDS: ASPIRIN EC 81 MG TABLET PO SCH (08:37)
[2017-03-10] MEDS: CARVEDILOL 6.25 MG TABLET PO SCH ×2 (08:37→20:32)
[2017-03-10] MEDS: LISINOPRIL 10 MG TABLET PO SCH (08:37)
[2017-03-10] MEDS: SPIRONOLACTONE 25 MG TABLET PO SCH (08:37)
[2017-03-10] MEDS: TAMSULOSIN 0.4 MG CAPSULE PO SCH (08:37)
[2017-03-10] MEDS: FINASTERIDE 5 MG TABLET PO SCH (08:38)
[2017-03-10] MEDS: FUROSEMIDE 40 MG/4 ML VIAL IV SCH ×2 (08:38→16:28)
[2017-03-10] MEDS: CEFTAROLINE 600 MG in SODIUM CHLORIDE 0.9% 100 ML IV SCH ×2 (08:38→20:31)
[2017-03-10] MEDS: COLESEVELAM 625 MG TABLET PO SCH ×3 (08:39→20:31)
--- NOTE | 2017-03-10 15:26 | Orthopedic Progress Note ---
Assessment and Plan (1) Contusion, hip Status: Acute Current Visit: Yes Qualifiers: Encounter type: initial encounter Laterality: right Qualified Code(s): S70.01XA - Contusion of right hip, initial encounter Orthopedics - Subjective Interval history: Mr Aguilar is doing well. He was able to mobilize with physical therapy without much difficulty. He is not complaining of any hip pain. Exam shows no pain with gentle motion of his hip. He still demonstrates cellulitic changes involving his distal leg. Edema appears to be better. Impression: Gluteal contusion, improving Plan: I suspect most of his lower extremity discomfort was coming from his leg cellulitis and not his pelvis. Continue therapy. Please reconsult with any problems. Exam - Constitutional Vitals: Period Temp Pulse Resp BP Sys/[place] Pulse Ox Last 24 Hr 97.0 F-98.9 F 50-71 16-20 103-134/46-62 88-97 Results - Labs CBC & BMP: 03/10/17 04:59 03/10/17 04:59
--- NOTE | 2017-03-10 16:58 | Hospitalist Progress Note ---
Assessment and Plan (1) Renal mass Status: Acute Assessment and plan: Present on multiple previous imaging studies, CT A/P 01/2016 with multiple probable renal cyst but also with a solid enhancing lesion of the left kidney suspicious for neoplastic process Patient denies any knowledge of this although discharge summary at that time reports that urology was consulted and he was to follow-up with them in clinic It appears that he has been following with Dr. Ayoub for this, he last saw him earlier this month Current Visit: Yes (2) HTN (hypertension) Status: Chronic Current Visit: No (3) Dyslipidemia Status: Acute Current Visit: No (4) CHF (congestive heart failure) Status: Acute Assessment and plan: EF 30% Improving very slowly Continue IV lasix Cardiology assisting Current Visit: Yes Qualifiers: Congestive heart failure type: systolic Congestive heart failure chronicity : acute on chronic Qualified Code(s): I50.23 - Acute on chronic systolic ( congestive) heart failure (5) Leukocytosis Status: Acute Assessment and plan: 2/2 cellutitis, continue teflaro Current Visit: Yes (6) Right hip pain Status: Acute Assessment and plan: xray with possible fracture Ortho consulted, doesn't believe there is a fracture Diagnosed with gluteal contusion Ortho signed off Physical therapy Current Visit: Yes (7) Cellulitis Status: Acute Assessment and plan: Of BLE Continue teflaro leukocytosis resolved Current Visit: Yes Hospitalist: Subjective Interval history: No acute events overnight. Still with significant BLE edema. Denies sob or chest pain. Exam - Constitutional Vitals: Period Temp Pulse Resp BP Sys/[place] Pulse Ox Last 24 Hr 97.9 F-98.9 F 50-71 16-20 103-134/46-61 88-97 General appearance: normal weight - Head Head exam: Present: normocephalic, atraumatic - Eye Eye exam: Present: EOMI Pupils: Present: CHARITY - ENT ENT exam: Present: normal exam - Neck Neck exam: Present: normal inspection - Respiratory Respiratory exam: Present: clear to auscultation bilaterally. Absent: wheezes - Cardiovascular Cardiovascular exam: Present: regular rate and rhythm - GI/Abdominal GI/Abdominal exam: Present: normal bowel sounds, soft. Absent: tenderness - Extremities Exam Extremities exam: Present: edema - Back Exam Back exam: Present: normal inspection - Neurological Exam Neurological exam: Present: alert, oriented X3 - Psychiatric Psychiatric exam: Present: normal affect, normal mood - Skin Skin exam: Present: warm, intact Results - Labs CBC & BMP: 03/10/17 04:59 03/10/17 04:59
--- NOTE | 2017-03-10 18:02 | Cardiology Progress Note ---
I, Abigail Bae, CHIDI, am scribing for, and in the presence of, Pal Lane MD 17:59. Assessment and Plan - Time spent with patient Time spent with patient: Greater than 30 minutes (Record review, assessment, documentation) (1) Hypokalemia Status: Resolved Assessment and plan: 1. ISCHEMIC DILATED CARDIOMYOPATHY - EF 30%. Tolerating YASMIN, betablocker. Adjust accordingly. Patient may be a candidate for ICD, will have him follow- up with Dr. Hadley his primary communications billing analyst after discharge in this regard. He has some intermittent mild bradycardia so I will not uptitrate his Coreg.. 2. CAD - s/p CABG X 3(2013), ASA, beta becka, ACEI, lipid lowering agent. 3. HYPOKALEMIA - improved with supplementation, added Spironolactone, which he seems to be tolerating.. 4. HYPOMAGNESEMIA - magnesium replacement protocol, recheck Mg. 5. HYPERTENSION -is well controlled per 6. CONGESTIVE HEART FAILURE - Acute on chronic, secondary to systolic dysfunction (EF 30%), NYHA Class III. Increased beta becka. 7. DYSLIPIDEMIA - continue lipid lowering agent. 8. PAF - intermittent episodes atrial fibrillation. 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 9. Being treated for cellulitis lower extremity, with probable chronic venous insufficiency abnormality. Current Visit: Yes (2) HTN (hypertension) Status: Chronic Assessment and plan: SEE PLAN LISTED BELOW Current Visit: No (3) CAD (coronary artery disease) of artery bypass graft Status: Chronic Assessment and plan: SEE PLAN LISTED BELOW Current Visit: No (4) CHF (congestive heart failure) Status: Acute Assessment and plan: SEE PLAN LISTED BELOW Current Visit: Yes Qualifiers: Congestive heart failure type: systolic Congestive heart failure chronicity : acute on chronic Qualified Code(s): I50.23 - Acute on chronic systolic ( congestive) heart failure (5) Ischemic cardiomyopathy Status: Chronic Assessment and plan: SEE PLAN LISTED BELOW Current Visit: Yes (6) Hypomagnesemia Status: Acute Assessment and plan: SEE PLAN LISTED BELOW Current Visit: Yes Cardiology - PN: Subj 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 Aguilar is an 86-year-old male, transferred to [facility] via EMS from [facility] for evaluation of right leg pain. The patient has been diagnosed and treated for congestive heart failure and right leg cellulitis. DVT was ruled out by ultrasound. 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 Cardiac history significant for ischemic dilated cardiomyopathy, CAD, paroxysmal atrial fibrillation, hypertension, former smoker, history of coronary artery bypass graft 3 (2013) , abnormal EKG. Echocardiogram reveals LVEF 30%. Previous TRUDY done 10/06 at [facility], revealed EF of 20-25%. The patient denies dyspnea or chest pain today. He did well overnight. Vital signs remained stable, continuous telemetry monitoring reveals frequent ventricular ectopy. Hypokalemia noted, and potassium replacement protocol. Creatinine 1.1, magnesium 1.7. 03/10/2017: Patient did well overnight. Denies complaints of chest pain or dyspnea. He reports he is ambulating with assistance of a walker and physical therapy. His blood pressure appears to be tolerating and increasing Coreg, heart rate noted in the 50s per telemetry monitoring. IMPRESSION/PLAN: 1. ISCHEMIC DILATED CARDIOMYOPATHY - EF 30%. Tolerating YASMIN, betablocker. Adjust accordingly. Patient may be a candidate for ICD. 2. CAD - s/p CABG X 3(2013), ASA, beta becka, ACEI, lipid lowering agent. 3. HYPOKALEMIA - improved with supplementation, added Spironolactone. 4. HYPOMAGNESEMIA - magnesium replacement protocol, recheck Mg. 5. HYPERTENSION - tolerating increased Coreg. 6. CONGESTIVE HEART FAILURE - Acute on chronic, secondary to systolic dysfunction (EF 30%), NYHA Class III. Increased beta becka. 7. DYSLIPIDEMIA - continue lipid lowering agent. 8. PAF - intermittent episodes atrial fibrillation. Not on anti-coagulation. Will obtain records and review for contraindications to NOAC. Exam (Progress Note) - Constitutional Vitals: Period Temp Pulse Resp BP Sys/[place] Pulse Ox Last 24 Hr 97.0 F-98.9 F 50-76 16-20 103-146/46-76 88-97 Exam: General: [Appears well with no apparent distress.] [Pleasant and cooperative. ] [Appears comfortable.] HEENT: [PERRL, normocephalic, atraumatic]. [Mucous membranes moist.] [No jaundice noted.] [Conjunctiva moist and clear, sclerae anicteric.] Neck: [No JVD/HJR, no thyromegaly or lymphadenopathy noted.] No carotid bruit appreciated. Cardiac: Regular rate and rhythm. No murmur rub or gallop. PMI is nondisplaced. Lungs: Clear to auscultation without accessory muscle use to assist the respiratory pattern. Oxygen in use via nasal cannula. Abdomen: Soft, bowel sounds normoactive. Nontender and nondistended. No abdominal bruit or thrill noted. No masses noted. Musculoskeletal: No fluid collection. Full range of motion is noted. Extremities: No clubbing, cyanosis noted. No edema noted. Upper extremity pulses 2+. Lower extremity pulses 2+. Capillary refill less than 3 seconds. Skin: Warm and dry. No unusual lesions or rashes. No skin breakdown appreciated. Neuro: Awake, alert and oriented 3. Moves all extremities well without hemiparesis or paralysis. No essential tremor is appreciated. Result/EKG - Labs CBC & BMP: 03/10/17 04:59 03/10/17 04:59 Lab Results: I have reviewed the past 24 hour labs Labs: Laboratory Results - last 24 hr 03/09/17 03/10/17 03/10/17 15:40 04:59 04:59 WBC 6.5 RBC 4.02 Hgb 12.5 L Hct 37.5 L MCV 93.3 MCH 31 MCHC 33.3 RDW 14.4 Plt Count 102 L MPV 11.1 Neut % (Auto) 75.8 H Lymph % (Auto) 11.4 L [place] % (Auto) 11.5 Eos % (Auto) 0.5 Baso % (Auto) 0.3 Neut # (Auto) 4.9 Lymph # (Auto) 0.7 L [place] # (Auto) 0.8 Eos # (Auto) 0.0 Baso # (Auto) 0.0 Immature Gran % 0.5 Nucleated RBC % 0.0 Immature Gran # 0.03 Nucleated RBCs # 0.00 Immature Plt Fraction 0.0 Sodium 144 Potassium 3.3 L 3.6 Chloride 104 Carbon Dioxide 35 H Anion Gap 8.6 BUN 36 H Creatinine 1.10 GFR Calculation 70 BUN/Creatinine Ratio 32.00 H Glucose 118 H Calculated Osmolality 294.8 Calcium 7.8 L Magnesium 1.7 L B-Natriuretic Peptide 03/10/17 04:59 WBC RBC Hgb Hct MCV MCH MCHC RDW Plt Count MPV Neut % (Auto) Lymph % (Auto) [place] % (Auto) Eos % (Auto) Baso % (Auto) Neut # (Auto) Lymph # (Auto) [place] # (Auto) Eos # (Auto) Baso # (Auto) Immature Gran % Nucleated RBC % Immature Gran # Nucleated RBCs # Immature Plt Fraction Sodium Potassium Chloride Carbon Dioxide Anion Gap BUN Creatinine GFR Calculation BUN/Creatinine Ratio Glucose Calculated Osmolality Calcium Magnesium B-Natriuretic Peptide 2924 H - EKG EKG results: interpreted by me EKG shows: bradycardia Fabiana, Pal Lane MD, personally performed the services described in this documentation, ascribed by Abigail Bae NP in my presence, and it is both accurate and complete [id number] .
[2017-03-10] MEDS: ATORVASTATIN 40 MG TABLET PO SCH (20:31)
[2017-03-10] MEDS: APIXABAN 2.5 MG TABLET PO SCH (20:31)
[2017-03-11 06:04] LABS: Calcium 7.9 MG/DL (8.5-10.1); Magnesium 1.8 MG/DL (1.8-2.4); Osmolality,Calculated 292.1 MOS/KG (273-304); Potassium 3.9 MMOL/L (3.5-5.1)
[2017-03-11] MEDS: COLESEVELAM 625 MG TABLET PO SCH ×3 (08:32→21:49)
[2017-03-11] MEDS: LISINOPRIL 10 MG TABLET PO SCH (08:32)
[2017-03-11] MEDS: CARVEDILOL 6.25 MG TABLET PO SCH ×2 (08:32→21:49)
[2017-03-11] MEDS: TAMSULOSIN 0.4 MG CAPSULE PO SCH (08:33)
[2017-03-11] MEDS: APIXABAN 2.5 MG TABLET PO SCH ×2 (08:33→21:49)
[2017-03-11] MEDS: FUROSEMIDE 40 MG/4 ML VIAL IV SCH ×2 (08:33→15:08)
[2017-03-11] MEDS: FINASTERIDE 5 MG TABLET PO SCH (08:33)
[2017-03-11] MEDS: SPIRONOLACTONE 25 MG TABLET PO SCH (08:33)
[2017-03-11] MEDS: ASPIRIN EC 81 MG TABLET PO SCH (08:33)
[2017-03-11] MEDS: CEFTAROLINE 600 MG in SODIUM CHLORIDE 0.9% 100 ML IV SCH ×2 (08:34→21:49)
[2017-03-11] MEDS ORDERED: MAGNESIUM SULF RIDER 4 GM in PREMIX 1 EACH IV PRN (15:02)
[2017-03-11] MEDS ORDERED: MAGNESIUM SULF RIDER 2 GM in PREMIX 1 EACH IV PRN (15:02)
--- NOTE | 2017-03-11 15:02 | Cardiology Progress Note ---
Catalino Jung Lesley, CHIDI, am scribing for, and in the presence of, Kasandra Cerda NP 15:00. Assessment and Plan - Time spent with patient Time spent with patient: Greater than 30 minutes (Record review, assessment, and documentation) (1) Hypokalemia Status: Resolved Assessment and plan: SEE PLAN LISTED BELOW Current Visit: Yes (2) HTN (hypertension) Status: Chronic Assessment and plan: SEE PLAN LISTED BELOW Current Visit: No (3) CAD (coronary artery disease) of artery bypass graft Status: Chronic Assessment and plan: SEE PLAN LISTED BELOW Current Visit: No (4) CHF (congestive heart failure) Status: Acute Assessment and plan: SEE PLAN LISTED BELOW Current Visit: Yes Qualifiers: Congestive heart failure type: systolic Congestive heart failure chronicity : acute on chronic Qualified Code(s): I50.23 - Acute on chronic systolic ( congestive) heart failure (5) Ischemic cardiomyopathy Status: Chronic Assessment and plan: SEE PLAN LISTED BELOW Current Visit: Yes (6) Hypomagnesemia Status: Resolved Assessment and plan: SEE PLAN LISTED BELOW Current Visit: Yes Cardiology - PN: Subj Interval history: WOOD BARKER: Dr. Hadley I saw this gentleman with nurse practitioner OLIVA Ramos today, examined patient and discussed plan of care. Mr. Aguilar is an 86-year-old male, transferred to [facility] via EMS from [facility] for evaluation of right leg pain. The patient has been diagnosed and treated for congestive heart failure and right leg cellulitis. DVT was ruled out by ultrasound. 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 Cardiac history significant for ischemic dilated cardiomyopathy, CAD, paroxysmal atrial fibrillation, hypertension, former smoker, history of coronary artery bypass graft 3 (2013) , abnormal EKG. Echocardiogram reveals LVEF 30%. Previous TRUDY done 10/06 at [facility], revealed EF of 20-25%. The patient denies dyspnea or chest pain today. He did well overnight. Vital signs remained stable, continuous telemetry monitoring reveals frequent ventricular ectopy. Hypokalemia noted, and potassium replacement protocol. Creatinine 1.1, magnesium 1.7. 03/10/2017: Patient did well overnight. Denies complaints of chest pain or dyspnea. He reports he is ambulating with assistance of a walker and physical therapy. His blood pressure appears to be tolerating and increasing Coreg, heart rate noted in the 50s per telemetry monitoring. 03/11/17: The patient was laying in bed, no complaints of chest pain or dyspnea. Ambulating with walker and PT assistance. Oxygen saturations in the 90s. Electrolytes WNL, creatinine stable at 1.0. Had brief run of SVT this morning, frequent multifocal PVCs. Brief. Increasing beta-becka today. Giving magnesium per IV protocol and given additional dose of oral potassium today. Further discuss with Dr. Lane and await additional recommendations IMPRESSION/PLAN: 1. ISCHEMIC DILATED CARDIOMYOPATHY - EF 30%. Tolerating YASMIN, betablocker. Will f/u with Dr. Hadley outpatient for possible AICD. 2. CAD - s/p CABG X 3(2013), ASA, beta becka, ACEI, lipid lowering agent. 3. HYPERTENSION - continue to monitor and adjust meds accordingly. 4. CONGESTIVE HEART FAILURE - Acute on chronic, secondary to systolic dysfunction (EF 30%), NYHA Class III. Tolerating increased beta becka. 7. DYSLIPIDEMIA - continue lipid lowering agent, LDL 41. 8. PAF - intermittent episodes atrial fibrillation. Eliquis initiated, monitor hemoglobin and hematocrit. Exam (Progress Note) - Constitutional Vitals: Period Temp Pulse Resp BP Sys/[place] Pulse Ox Last 24 Hr 97.7 F-98.8 F 50-69 16-20 103-129/46-66 90-97 Exam: General: [Appears well with no apparent distress.] [Pleasant and cooperative. ] [Appears comfortable.] HEENT: [PERRL, normocephalic, atraumatic]. [Mucous membranes moist.] [No jaundice noted.] [Conjunctiva moist and clear, sclerae anicteric.] Neck: [No JVD/HJR, no thyromegaly or lymphadenopathy noted.] No carotid bruit appreciated. Cardiac: Regular rate and rhythm. No murmur rub or gallop. Lungs: Clear to auscultation without accessory muscle use to assist the respiratory pattern. Oxygen in use via nasal cannula. Abdomen: Soft, bowel sounds normoactive. Nontender and nondistended. No abdominal bruit or thrill noted. No masses noted. Musculoskeletal: No fluid collection. Full range of motion is noted. Extremities: No clubbing, cyanosis noted. No edema noted. Upper extremity pulses 2+. Lower extremity pulses 2+. Capillary refill less than 3 seconds. Skin: Warm and dry. No unusual lesions or rashes. No skin breakdown appreciated. Neuro: Awake, alert and oriented 3. Moves all extremities well without hemiparesis or paralysis. No essential tremor is appreciated. Result/EKG - Labs CBC & BMP: 03/10/17 04:59 03/11/17 04:51 Lab Results: I have reviewed the past 24 hour labs Labs: Laboratory Results - last 24 hr 03/11/17 04:51 Sodium 142 Potassium 3.9 Chloride 103 Carbon Dioxide 33 H Anion Gap 9.9 BUN 40 H Creatinine 1.00 GFR Calculation 79 BUN/Creatinine Ratio 40.00 H Glucose 103 Calculated Osmolality 292.1 Calcium 7.9 L Magnesium 1.8 - EKG EKG results: interpreted by me, sinus rhythm Zaida Jung Bonnie E, NP, personally performed the services described in this documentation, ascribed by Abigail Bae NP in my presence, and it is both accurate and complete [id number] .
[2017-03-11] MEDS ORDERED: POTASSIUM CHLORIDE 10 MEQ TABLET PO ONE (15:03)
--- NOTE | 2017-03-11 16:29 | Hospitalist Progress Note ---
Assessment and Plan (1) Renal mass Status: Acute Assessment and plan: Present on multiple previous imaging studies, CT A/P 01/2016 with multiple probable renal cyst but also with a solid enhancing lesion of the left kidney suspicious for neoplastic process Patient denies any knowledge of this although discharge summary at that time reports that urology was consulted and he was to follow-up with them in clinic It appears that he has been following with Dr. Ayoub for this, he last saw him earlier this month Current Visit: Yes (2) HTN (hypertension) Status: Chronic Current Visit: No (3) Dyslipidemia Status: Acute Current Visit: No (4) CHF (congestive heart failure) Status: Acute Assessment and plan: EF 30% Improving very slowly Continue IV lasix Cardiology assisting Current Visit: Yes Qualifiers: Congestive heart failure type: systolic Congestive heart failure chronicity : acute on chronic Qualified Code(s): I50.23 - Acute on chronic systolic ( congestive) heart failure (5) Leukocytosis Status: Acute Assessment and plan: 2/2 cellutitis, continue teflaro Current Visit: Yes (6) Right hip pain Status: Acute Assessment and plan: xray with possible fracture Ortho consulted, doesn't believe there is a fracture Diagnosed with gluteal contusion Ortho signed off Physical therapy Current Visit: Yes (7) Cellulitis Status: Acute Assessment and plan: Of BLE Continue teflaro leukocytosis resolved Current Visit: Yes Hospitalist: Subjective Interval history: No acute events overnight. Patient with mild improvement in cellulitis and edema. Exam - Constitutional Vitals: Period Temp Pulse Resp BP Sys/[place] Pulse Ox Last 24 Hr 97.2 F-98.8 F 48-69 16-20 114-133/49-66 90-95 General appearance: normal weight - Head Head exam: Present: normocephalic, atraumatic - Eye Eye exam: Present: EOMI Pupils: Present: CHARITY - ENT ENT exam: Present: normal exam - Neck Neck exam: Present: normal inspection - Respiratory Respiratory exam: Present: clear to auscultation bilaterally. Absent: rhonchi, wheezes - Cardiovascular Cardiovascular exam: Present: regular rate and rhythm - GI/Abdominal GI/Abdominal exam: Present: normal bowel sounds, soft. Absent: tenderness, rebound - Extremities Exam Extremities exam: Present: normal inspection - Back Exam Back exam: Present: normal inspection - Neurological Exam Neurological exam: Present: alert, oriented X3 - Psychiatric Psychiatric exam: Present: normal affect, normal mood - Skin Skin exam: Present: warm, intact Results - Labs CBC & BMP: 03/10/17 04:59 03/11/17 04:51
[2017-03-11] MEDS: ATORVASTATIN 40 MG TABLET PO SCH (21:51)
[2017-03-12 05:51] LABS: Basophils % 0.6 % (0.0-0.8); Eosinophils # 0.1 10*3/uL (0.0-0.87); Eosinophils % 1.8 % (0.00-10.9); Hematocrit 38.1 VOL% (42.0-52.0); Hemoglobin 12.5 GM/DL (14.0-18.0); Immature Granulocytes % 0.8 %; Immature Granulocytes Absolute 0.04 #; Lymphocytes # 0.7 10*3/uL (1.4-4.0); Lymphocytes % 14.7 % (21.2-54.2); Mean Corpuscular HGB Conc 32.8 GM/DL (32-36); Mean Corpuscular Hemoglobin 31 PG (27-34); Mean Corpuscular Volume 93.6 FL (87-102); Monocytes # 0.7 10*3/uL (0.11-0.8); Monocytes % 13.2 % (1.7-12.7); Neutrophils # 3.4 10*3/uL (1.4-7.4); Neutrophils % 68.9 % (38.7-73.9); Platelet Count 116 T/CUMM (130-400); Red Blood Count 4.07 MC/CUMM (3.8-5.5); Red Cell Distribution Width 14.3 % (9.3-17.3); White Blood Count 4.9 T/CUMM (4-12)
[2017-03-12 06:33] LABS: Calcium 7.9 MG/DL (8.5-10.1); Magnesium 2.4 MG/DL (1.8-2.4); Osmolality,Calculated 295.1 MOS/KG (273-304); Potassium 3.9 MMOL/L (3.5-5.1)
--- NOTE | 2017-03-12 07:33 | EKG Report ---
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
--- NOTE | 2017-03-12 07:34 | Hospitalist Progress Note ---
Assessment and Plan (1) Contusion, hip Status: Acute Current Visit: Yes Qualifiers: Encounter type: initial encounter Laterality: right Qualified Code(s): S70.01XA - Contusion of right hip, initial encounter (2) Ischemic cardiomyopathy Status: Chronic Assessment and plan: History of aortocoronary bypass grafting. Echocardiographic documentation reduced left ventricular systolic performance paroxysmal atrial fibrillation. Current Visit: Yes (3) Cellulitis Status: Acute Current Visit: Yes Hospitalist: Subjective Interval history: 86-year-old male with previous aortocoronary bypass grafting and documented reduced left ventricular systolic performance with paroxysmal atrial fibrillation; was transferred from local emergency room for complaints of right leg pain. Initially there was concerns regarding potential fracture however orthopedic review of suggested this was simply a contusion. He has been seen by cardiology and is on Coreg along with afterload and has been initiated on Eliquis. He is receiving active treatment for cellulitis. His vital signs overnight were stable and other than diffuse weakness he has no specific complaint. Exam - Constitutional Vitals: Period Temp Pulse Resp BP Sys/[place] Pulse Ox Last 24 Hr 97.2 F-98.7 F 48-64 16-20 105-150/46-67 90-99 General appearance: under weight - Respiratory Respiratory exam: Present: clear to auscultation bilaterally (Laterally only) - Cardiovascular Cardiovascular exam: Present: regular rate and rhythm - GI/Abdominal GI/Abdominal exam: Present: normal bowel sounds. Absent: organomegaly, tenderness - Extremities Exam Extremities exam: Present: other (Chronic hyperpigmentation of both lower extremity). Absent: edema - Neurological Exam Neurological exam: Present: alert, oriented X3 Results - Labs CBC & BMP: 03/12/17 05:06 03/12/17 05:06
[2017-03-12] MEDS: COLESEVELAM 625 MG TABLET PO SCH (09:00)
[2017-03-12] MEDS: CARVEDILOL 6.25 MG TABLET PO SCH (09:01)
[2017-03-12] MEDS: FUROSEMIDE 40 MG/4 ML VIAL IV SCH (09:02)
[2017-03-12] MEDS: ASPIRIN EC 81 MG TABLET PO SCH (09:02)
[2017-03-12] MEDS: TAMSULOSIN 0.4 MG CAPSULE PO SCH (09:02)
[2017-03-12] MEDS: FINASTERIDE 5 MG TABLET PO SCH (09:02)
[2017-03-12] MEDS: APIXABAN 2.5 MG TABLET PO SCH (09:02)
[2017-03-12] MEDS: LISINOPRIL 10 MG TABLET PO SCH (09:02)
[2017-03-12] MEDS: SPIRONOLACTONE 25 MG TABLET PO SCH (09:02)
[2017-03-12] MEDS: CEFTAROLINE 600 MG in SODIUM CHLORIDE 0.9% 100 ML IV SCH (10:12)
--- NOTE | 2017-03-12 10:35 | Discharge Summary ---
Hospital Course - Hospital Course Hospital Course: 86-year-old male who was admitted with hip pain in transfer with initial concerns regarding possible fracture. Orthopedic evaluation suggested that this was soft tissue trauma with no evidence of fracture. The patient did have chronic peripheral venous insufficiency following remote aortocoronary bypass graft procedure with areas of secondary infection. His blood culture was positive for Streptococcus dysgalactia broadly sensitive. Patient's echocardiographic evaluation indicated ejection fraction of 30% with a right ventricular systolic pressure of 75-80 mmHg. During the hospital stay the patient developed a mild hypokalemic metabolic alkalosis with supervised diuresis. Arrangements have been made for the patient to be released to [facility] for continuing inpatient care. Patient's records indicate the presence of renal masses. This is been evaluated by urology in January 2016. The question is whether this represented spread of a previously documented prostate cancer or a separate urogenital tumor is nowhere on the record resolved. His renal ultrasound performed on this hospitalization continues to show a nonspecific solid mass superior to the right kidney with gradual increase in size compared to 2008. He was not felt to have changed in size since the preceding year study. Diagnosis - Discharge Diagnosis (1) Contusion, hip Status: Acute (2) Ischemic cardiomyopathy Status: Chronic (3) Cellulitis Status: Acute Discharge Plan - Discharge Data Disposition: Disch/Xfer to Snf Condition at Discharge: Stable Discharge Diet: advance to your usual diet Activity: resume usual activities as tolerated - Discharge Medications New Acetaminophen Tab [Tylenol Tab] 650 mg PO Q4H PRN tablet PRN Reason: Fever, Headache, Mild Pain Apixaban [Eliquis] 2.5 mg PO BID tablet Atorvastatin [Lipitor] 40 mg PO BEDTIME tablet Carvedilol [Coreg] 6.25 mg PO BID tablet Ceftaroline [Teflaro] 600 mg IV Q12H vial Finasteride [Proscar] 5 mg PO DAILY tablet Furosemide Inj [Lasix Inj] 40 mg IV BID DIURETIC vial HYDROcodone/ACETAMIN 5-325 [[place] 5-325] 1 tablet PO Q4H PRN tablet PRN Reason: Pain Mild (1-3) Potassium Chloride Cap/Tab [K Dur] 20 meq PO .PER PROTOCOL PRN tablet PRN Reason: Per Protocol Spironolactone [Aldactone] 25 mg PO DAILY tablet Zinc Oxide Paste [Desitin Paste] 1 applic TOP PRN PRN applic PRN Reason: Diaper Rash Ceftaroline [Teflaro] 600 mg IV Q12H vial Lisinopril [Prinivil] 40 mg PO DAILY tablet Tamsulosin [Flomax] 0.4 mg PO DAILY capsule Continue Clopidogrel [Plavix] 75 mg PO DAILY Discontinued Finasteride 5 mg PO DAILY Colesevelam [Welchol] 1,875 mg PO TID Aspirin [Ecotrin] 81 mg PO DAILY Tamsulosin [Flomax] 0.4 mg PO DAILY Atorvastatin [Lipitor] 40 mg PO BEDTIME Carvedilol [Coreg] 3.125 mg PO BID #60 tablet Lisinopril [Prinivil] 40 mg PO DAILY - Follow Up or Referral - Forms/Instructions Exam - Constitutional Vitals: Period Temp Pulse Resp BP Sys/[place] Pulse Ox Last 24 Hr 97.2 F-98.7 F 48-64 16-20 105-150/46-67 90-99 Discharge Results Procedures and tests throughout hospitalization: Pending Orders 03/06/17 Blood Culture Stat 03/08/17 16:45 Blood Culture Routine Labs on day of discharge: Labs from last 24 hours 03/12/17 03/12/17 05:06 05:06 WBC 4.9 RBC 4.07 Hgb 12.5 L Hct 38.1 L MCV 93.6 MCH 31 MCHC 32.8 RDW 14.3 Plt Count 116 L MPV 11.0 Neut % (Auto) 68.9 Lymph % (Auto) 14.7 L [place] % (Auto) 13.2 H Eos % (Auto) 1.8 Baso % (Auto) 0.6 Neut # (Auto) 3.4 Lymph # (Auto) 0.7 L [place] # (Auto) 0.7 Eos # (Auto) 0.1 Baso # (Auto) 0.0 Immature Gran % 0.8 Nucleated RBC % 0.0 Immature Gran # 0.04 Nucleated RBCs # 0.00 Immature Plt Fraction 0.0 Sodium 142 Potassium 3.9 Chloride 102 Carbon Dioxide 36 H Anion Gap 7.9 BUN 47 H Creatinine 1.10 GFR Calculation 70 BUN/Creatinine Ratio 42.00 H Glucose 112 H Calculated Osmolality 295.1 Calcium 7.9 L Magnesium 2.4 Preliminary micro results at discharge 03/08/17 16:45 Blood Culture - Preliminary Blood No growth at 3 days 03/08/17 16:45 Blood Culture - Preliminary Blood No growth at 3 days 03/06/17 Unknown Blood Culture - Preliminary Blood No growth at 3 days DS: Provider Date of admission: 03/06/17 16:23 Primary care physician: Michele Hernandez MD Attending physician on admission: Eddie Short MD Consults: 03/06/17 19:40 Consult to Wound Care [facility] [CONS] Routine Reason for Wound Care: Wound Care Management 03/09/17 08:05 Consult to Physician [CONS] Routine Comment: chf exacerbation, possibly new diagnosis Consulting Provider: Heike Hoffman Consult to Specialist Group: Cardiology Person Notified: Andre Date Notified: 03/09/17 Time Notified: 08:15 03/09/17 11:07 Consult to Physical Therapy [CONS] Routine Reason for Physical Therapy: Evaluate and Treat Start Therapy: Today Consult Comment: wbat with walker, isometrics 03/09/17 17:26 Consult to Physician [CONS] Routine Comment: Consulting Provider: Hever Mancuso Jr. Consult to Specialist Group: Orthopedic Person Notified: HELADIO Date Notified: 03/09/17 Time Notified: 09:15 03/11/17 11:41 Consult to Case Mgmt/Social Srvs [CONS] Routine Reason for Case Mgmt/Social Srvs: LTAC Discharging clinician: Sal Ramirez MD Expected date of discharge: 03/12/17
[2017-03-12 12:30] VITALS: BP 137/73
[2017-03-12] MEDS ORDERED: CEFTAROLINE 600 MG in SODIUM CHLORIDE 0.9% 50 ML IV SCH (21:00)
== END 2017-03-12 14:05 | DRG 602 ==
LOC: EDBD → EDUNIT# → N.ED 14:17 → SUATTDRO 16:23 → N.EDINP 16:23 → N.TELES 18:51
PROVIDERS: ADMIT Internal Medicine; ATTEND Internal Medicine Cardiovascular Disease

== ENCOUNTER 2017-04-07 15:56 | Inpatient (IN) ==
[2017-04-07 16:48] LABS: Basophils % 0.3 % (0.0-0.8); Eosinophils # 0.1 10*3/uL (0.0-0.87); Eosinophils % 0.9 % (0.00-10.9); Hematocrit 34.9 VOL% (42.0-52.0); Hemoglobin 11.2 GM/DL (14.0-18.0); Immature Granulocytes % 0.4 %; Immature Granulocytes Absolute 0.03 #; Lymphocytes # 0.8 10*3/uL (1.4-4.0); Lymphocytes % 10.2 % (21.2-54.2); Mean Corpuscular HGB Conc 32.1 GM/DL (32-36); Mean Corpuscular Hemoglobin 30 PG (27-34); Mean Corpuscular Volume 94.8 FL (87-102); Mean Platelet Volume 10.7 FL (9.6-12.0); Monocytes % 13.8 % (1.7-12.7); Neutrophils # 5.5 10*3/uL (1.4-7.4); Neutrophils % 74.4 % (38.7-73.9); Platelet Count 107 T/CUMM (130-400); Red Blood Count 3.68 MC/CUMM (3.8-5.5); Red Cell Distribution Width 14.9 % (9.3-17.3); White Blood Count 7.4 T/CUMM (4-12)
[2017-04-07 16:55] LABS: INR 1.4; PT Patient Result 14.6 SECS
[2017-04-07 17:39] LABS: Band Neutrophils 1 % (0-10); Eosinophils 1 % (0-10); Lymphocytes 8 % (20-55); Ovalocytes Few; Platelet Estimate Decreased; Poikilocytosis 1+; Segmented Neutrophils 75 % (50-85); Total Cells Counted 100
[2017-04-07 17:40] LABS: Burr Cells 1+
[2017-04-07] MEDS ORDERED: MORPHINE 2 MG/1 ML SYRINGE IV PRN (18:18)
[2017-04-07] MEDS ORDERED: ONDANSETRON 4 MG/2 ML VIAL IV PRN (18:18)
[2017-04-07] MEDS ORDERED: diphenhydrAMINE CAP 25 MG CAPSULE PO PRN (18:18)
[2017-04-07] MEDS ORDERED: ACETAMINOPHEN 325 MG TABLET PO PRN ×2 (18:18)
[2017-04-07] MEDS ORDERED: guaiFENesin/DM ER 600-30 MG TABLET PO PRN (18:18)
[2017-04-07] MEDS: SODIUM CHLORIDE 0.9% 1,000 ML IV SCH (20:00)
[2017-04-07] MEDS: PANTOPRAZOLE 40 MG TABLET PO SCH (21:38)
[2017-04-08] MEDS: SODIUM CHLORIDE 0.9% 1,000 ML IV SCH ×3 (04:18→17:42)
[2017-04-08 07:06] LABS: Basophils % 0.4 % (0.0-0.8); Eosinophils # 0.1 10*3/uL (0.0-0.87); Eosinophils % 2.6 % (0.00-10.9); Hematocrit 33.8 VOL% (42.0-52.0); Hemoglobin 10.9 GM/DL (14.0-18.0); Immature Granulocytes % 0.4 %; Immature Granulocytes Absolute 0.02 #; Lymphocytes # 0.6 10*3/uL (1.4-4.0); Mean Corpuscular HGB Conc 32.2 GM/DL (32-36); Mean Corpuscular Hemoglobin 30 PG (27-34); Mean Corpuscular Volume 94.2 FL (87-102); Mean Platelet Volume 11.2 FL (9.6-12.0); Monocytes # 0.9 10*3/uL (0.11-0.8); Monocytes % 18.9 % (1.7-12.7); Neutrophils # 3.3 10*3/uL (1.4-7.4); Neutrophils % 65.7 % (38.7-73.9); Platelet Count 119 T/CUMM (130-400); Red Blood Count 3.59 MC/CUMM (3.8-5.5)
[2017-04-08 07:37] LABS: Band Neutrophils 55 % (0-10); Eosinophils 1 % (0-10); Lymphocytes 7 % (20-55); Segmented Neutrophils 25 % (50-85); Total Cells Counted 100
[2017-04-08 07:38] LABS: Anisocytosis 1+; Poikilocytosis 1+
[2017-04-08 07:39] LABS: Calcium 8.3 MG/DL (8.5-10.1); Magnesium 2.1 MG/DL (1.8-2.4); Osmolality,Calculated 288.7 MOS/KG (273-304); Potassium 5.2 MMOL/L (3.5-5.1)
[2017-04-08] MEDS: PANTOPRAZOLE 40 MG TABLET PO SCH ×2 (08:51→22:18)
[2017-04-08] MEDS: TAMSULOSIN 0.4 MG CAPSULE PO SCH (13:09)
[2017-04-08] MEDS: SPIRONOLACTONE 25 MG TABLET PO SCH (13:09)
[2017-04-08] MEDS: CARVEDILOL 6.25 MG TABLET PO SCH ×2 (13:09→22:18)
[2017-04-08] MEDS: FINASTERIDE 5 MG TABLET PO SCH (13:09)
[2017-04-08] MEDS: BRIMONIDINE 0.2% OPH SOLN 5 ML BOTTLE BOTH EYES SCH ×2 (13:09→22:17)
[2017-04-08] MEDS: DORZOLAMIDE/TIMOLOL OPH SOLN 10 ML BOTTLE BOTH EYES SCH ×2 (13:09→22:17)
[2017-04-08] MEDS: NYSTATIN 500,000 UNIT/5 ML UDCUP SWISH/SWAL SCH ×3 (13:10→22:17)
[2017-04-08] MEDS ORDERED: AMIODARONE INJ 150 MG in DEXTROSE 5% 100 ML IV ONE (16:00)
[2017-04-08] MEDS ORDERED: AMIODARONE 200 MG TABLET PO ONE (16:07)
[2017-04-08] MEDS ORDERED: AMIODARONE INJ 450 MG in DEXTROSE 5% 241 ML IV SCH ×2 (16:10→22:41)
[2017-04-08] MEDS: AMIODARONE 200 MG TABLET PO SCH ×2 (16:16→22:18)
[2017-04-08] MEDS: COLESEVELAM 625 MG TABLET PO SCH (17:42)
[2017-04-08] MEDS ORDERED: POLYETHYLENE GLYCOL POWDER 255 GM BOTTLE PO ONE (20:00)
[2017-04-08] MEDS ORDERED: ATORVASTATIN 40 MG TABLET PO SCH (21:00)
[2017-04-08] MEDS ORDERED: MAGNESIUM CITRATE 300 ML BOTTLE PO ONE (22:00)
[2017-04-08] MEDS: BISACODYL 5 MG TABLET PO SCH (22:17)
[2017-04-09] MEDS: BISACODYL 5 MG TABLET PO SCH ×2 (05:11→13:19)
[2017-04-09] MEDS: SODIUM CHLORIDE 0.9% 1,000 ML IV SCH ×2 (05:12→13:19)
[2017-04-09 06:39] LABS: Free T4 (Free Thyroxine) 1.38 NG/DL (0.76-1.46); Thyroid Stimulating Hormone 0.962 uIU/ml (0.358-3.74)
[2017-04-09 07:43] LABS: Albumin 2.2 G/DL (3.4-5.0); Bilirubin,Total 0.4 MG/DL (0.2-1.0); Calcium 8.4 MG/DL (8.5-10.1); Osmolality,Calculated 285.8 MOS/KG (273-304); Potassium 4.8 MMOL/L (3.5-5.1); Total Protein 5.5 G/DL (6.4-8.3)
[2017-04-09] MEDS: COLESEVELAM 625 MG TABLET PO SCH (13:16)
[2017-04-09] MEDS: SPIRONOLACTONE 25 MG TABLET PO SCH (13:17)
[2017-04-09] MEDS: AMIODARONE 200 MG TABLET PO SCH ×2 (13:17→14:20)
[2017-04-09] MEDS: BRIMONIDINE 0.2% OPH SOLN 5 ML BOTTLE BOTH EYES SCH (13:17)
[2017-04-09] MEDS: CARVEDILOL 6.25 MG TABLET PO SCH (13:18)
[2017-04-09] MEDS: PANTOPRAZOLE 40 MG TABLET PO SCH (13:18)
[2017-04-09] MEDS: DORZOLAMIDE/TIMOLOL OPH SOLN 10 ML BOTTLE BOTH EYES SCH (13:18)
[2017-04-09] MEDS: TAMSULOSIN 0.4 MG CAPSULE PO SCH (13:18)
[2017-04-09] MEDS: FINASTERIDE 5 MG TABLET PO SCH (13:18)
[2017-04-09] MEDS: NYSTATIN 500,000 UNIT/5 ML UDCUP SWISH/SWAL SCH ×3 (13:18→14:20)
[2017-04-09] MEDS ORDERED: FUROSEMIDE 40 MG/4 ML VIAL IV ONE (14:22)
[2017-04-09] MEDS ORDERED: ETOMIDATE 20 MG/10 ML VIAL IV ONE (15:09)
[2017-04-09] MEDS ORDERED: PROPOFOL 200 MG/20 ML VIAL IV ONE (15:09)
[2017-04-09] MEDS ORDERED: PHENYLEPHRINE 1 MG/10 ML SYRINGE IV ONE (15:09)
[2017-04-09 15:53] VITALS: BP 102/52
[2017-04-09] MEDS ORDERED: AMIODARONE 200 MG TABLET PO ONE (16:07)
[2017-04-09] MEDS ORDERED: APIXABAN 2.5 MG TABLET PO SCH (21:00)
[2017-04-10] MEDS ORDERED: FUROSEMIDE 40 MG TABLET PO SCH (09:00)
== END 2017-04-09 16:50 | DRG 378 ==
LOC: EDBD → EDUNIT# → N.ED 15:56 → N.EDINP 17:30 → N.5E 19:32 → N.TELEN 04-08 15:13
PROVIDERS: ADMIT Hospitalist; ATTEND Hospitalist

== ENCOUNTER 2017-06-03 14:54 | Inpatient (IN) ==
[2017-06-03] MEDS ORDERED: ONDANSETRON 4 MG/2 ML VIAL IV PRN (16:53)
[2017-06-03] MEDS ORDERED: MORPHINE 2 MG/1 ML SYRINGE IV PRN (16:53)
[2017-06-03] MEDS ORDERED: SODIUM CHLORIDE 0.9% 1,000 ML IV SCH (17:00)
[2017-06-04 06:36] LABS: Basophils # 0.1 10*3/uL (0.0-0.2); Eosinophils # 0.1 10*3/uL (0.0-0.87); Eosinophils % 1.4 % (0.00-10.9); Hematocrit 31.4 VOL% (42.0-52.0); Hemoglobin 10.3 GM/DL (14.0-18.0); Immature Granulocytes % 0.3 %; Immature Granulocytes Absolute 0.02 #; Lymphocytes # 2.1 10*3/uL (1.4-4.0); Lymphocytes % 36.3 % (21.2-54.2); Mean Corpuscular HGB Conc 32.8 GM/DL (32-36); Mean Corpuscular Hemoglobin 29 PG (27-34); Mean Platelet Volume 9.6 FL (9.6-12.0); Monocytes # 0.7 10*3/uL (0.11-0.8); Monocytes % 11.3 % (1.7-12.7); Neutrophils # 2.9 10*3/uL (1.4-7.4); Neutrophils % 49.7 % (38.7-73.9); Platelet Count 182 T/CUMM (130-400); Red Blood Count 3.57 MC/CUMM (3.8-5.5); Red Cell Distribution Width 16.7 % (9.3-17.3); White Blood Count 5.8 T/CUMM (4-12)
[2017-06-04 07:11] LABS: Bilirubin,Total 0.7 MG/DL (0.2-1.0); Calcium 8.8 MG/DL (8.5-10.1); Magnesium 2.5 MG/DL (1.8-2.4); Osmolality,Calculated 302.3 MOS/KG (273-304); Potassium 3.9 MMOL/L (3.5-5.1); Total Protein 6.5 G/DL (6.4-8.3)
[2017-06-04] MEDS: PANTOPRAZOLE 40 MG TABLET PO SCH (08:23)
[2017-06-04] MEDS: SODIUM CHLORIDE 0.9% 1,000 ML IV SCH ×2 (08:23→17:02)
[2017-06-04] MEDS ORDERED: LIDOCAINE 1% 5 ML VIAL ONE (14:15)
[2017-06-04] MEDS ORDERED: PROPOFOL 200 MG/20 ML VIAL IV ONE (14:15)
[2017-06-05] MEDS: SODIUM CHLORIDE 0.9% 1,000 ML IV SCH ×2 (05:31→15:35)
[2017-06-05 06:07] LABS: Basophils # 0.1 10*3/uL (0.0-0.2); Basophils % 0.8 % (0.0-0.8); Eosinophils # 0.1 10*3/uL (0.0-0.87); Eosinophils % 1.4 % (0.00-10.9); Hematocrit 32.9 VOL% (42.0-52.0); Hemoglobin 10.6 GM/DL (14.0-18.0); Immature Granulocytes % 0.5 %; Immature Granulocytes Absolute 0.03 #; Lymphocytes # 2.2 10*3/uL (1.4-4.0); Lymphocytes % 34.7 % (21.2-54.2); Mean Corpuscular HGB Conc 32.2 GM/DL (32-36); Mean Corpuscular Hemoglobin 29 PG (27-34); Mean Corpuscular Volume 89.4 FL (87-102); Mean Platelet Volume 9.8 FL (9.6-12.0); Monocytes # 0.7 10*3/uL (0.11-0.8); Monocytes % 11.4 % (1.7-12.7); Neutrophils # 3.2 10*3/uL (1.4-7.4); Neutrophils % 51.2 % (38.7-73.9); Platelet Count 196 T/CUMM (130-400); Red Blood Count 3.68 MC/CUMM (3.8-5.5); Red Cell Distribution Width 16.8 % (9.3-17.3); White Blood Count 6.3 T/CUMM (4-12)
[2017-06-05 06:44] LABS: Calcium 8.3 MG/DL (8.5-10.1); Osmolality,Calculated 297.1 MOS/KG (273-304); Potassium 4.3 MMOL/L (3.5-5.1)
[2017-06-05] MEDS: PANTOPRAZOLE 40 MG TABLET PO SCH (08:14)
[2017-06-05] MEDS ORDERED: BISACODYL 5 MG TABLET PO PRN (08:16)
[2017-06-05] MEDS: ZINC OXIDE PASTE 113 GM TUBE TOP SCH (23:19)
[2017-06-06] MEDS: SODIUM CHLORIDE 0.9% 1,000 ML IV SCH ×4 (01:50→20:55)
[2017-06-06 06:59] LABS: Basophils # 0.1 10*3/uL (0.0-0.2); Basophils % 0.8 % (0.0-0.8); Eosinophils # 0.1 10*3/uL (0.0-0.87); Eosinophils % 2.1 % (0.00-10.9); Hematocrit 29.9 VOL% (42.0-52.0); Hemoglobin 9.6 GM/DL (14.0-18.0); Immature Granulocytes % 0.5 %; Immature Granulocytes Absolute 0.03 #; Lymphocytes % 32.1 % (21.2-54.2); Mean Corpuscular HGB Conc 32.1 GM/DL (32-36); Mean Corpuscular Hemoglobin 29 PG (27-34); Mean Corpuscular Volume 89.5 FL (87-102); Mean Platelet Volume 10.1 FL (9.6-12.0); Monocytes # 0.8 10*3/uL (0.11-0.8); Monocytes % 12.2 % (1.7-12.7); Neutrophils # 3.2 10*3/uL (1.4-7.4); Neutrophils % 52.3 % (38.7-73.9); Platelet Count 177 T/CUMM (130-400); Red Blood Count 3.34 MC/CUMM (3.8-5.5); Red Cell Distribution Width 16.7 % (9.3-17.3); White Blood Count 6.2 T/CUMM (4-12)
[2017-06-06 07:36] LABS: Calcium 8.1 MG/DL (8.5-10.1); Osmolality,Calculated 291.4 MOS/KG (273-304); Potassium 4.4 MMOL/L (3.5-5.1)
[2017-06-06] MEDS: APIXABAN 2.5 MG TABLET PO SCH ×2 (09:26→21:16)
[2017-06-06] MEDS: PANTOPRAZOLE 40 MG TABLET PO SCH (09:26)
[2017-06-06] MEDS: ZINC OXIDE PASTE 113 GM TUBE TOP SCH ×2 (09:27→20:57)
[2017-06-06] MEDS: BACITRACIN OINT 0.9 GM PACK TOP SCH ×2 (14:12→23:27)
[2017-06-06] MEDS: SODIUM CHLORIDE 0.65% NASAL SPRAY 45 ML BOTTLE BOTH NARES PRN ×2 (14:12→20:57)
[2017-06-07 06:52] LABS: Basophils % 0.6 % (0.0-0.8); Eosinophils # 0.1 10*3/uL (0.0-0.87); Eosinophils % 2.1 % (0.00-10.9); Hemoglobin 9.5 GM/DL (14.0-18.0); Immature Granulocytes % 0.6 %; Immature Granulocytes Absolute 0.03 #; Lymphocytes # 1.6 10*3/uL (1.4-4.0); Lymphocytes % 30.5 % (21.2-54.2); Mean Corpuscular HGB Conc 31.7 GM/DL (32-36); Mean Corpuscular Hemoglobin 29 PG (27-34); Mean Corpuscular Volume 90.1 FL (87-102); Mean Platelet Volume 10.1 FL (9.6-12.0); Monocytes # 0.7 10*3/uL (0.11-0.8); Monocytes % 12.8 % (1.7-12.7); Neutrophils # 2.8 10*3/uL (1.4-7.4); Neutrophils % 53.4 % (38.7-73.9); Platelet Count 168 T/CUMM (130-400); Red Blood Count 3.33 MC/CUMM (3.8-5.5); Red Cell Distribution Width 16.8 % (9.3-17.3); White Blood Count 5.2 T/CUMM (4-12)
[2017-06-07 07:16] LABS: Calcium 7.9 MG/DL (8.5-10.1); Osmolality,Calculated 292.1 MOS/KG (273-304); Potassium 4.2 MMOL/L (3.5-5.1)
[2017-06-07] MEDS: SODIUM CHLORIDE 0.9% 1,000 ML IV SCH ×2 (07:18→15:33)
[2017-06-07] MEDS: PANTOPRAZOLE 40 MG TABLET PO SCH (08:02)
[2017-06-07] MEDS: BACITRACIN OINT 0.9 GM PACK TOP SCH ×3 (08:02→21:09)
[2017-06-07] MEDS: APIXABAN 2.5 MG TABLET PO SCH ×2 (08:02→21:06)
[2017-06-07] MEDS: ZINC OXIDE PASTE 113 GM TUBE TOP SCH ×2 (08:02→21:10)
[2017-06-08] MEDS: SODIUM CHLORIDE 0.9% 1,000 ML IV SCH ×2 (04:21→15:37)
[2017-06-08 06:51] LABS: Calcium 8.1 MG/DL (8.5-10.1); Potassium 4.4 MMOL/L (3.5-5.1)
[2017-06-08] MEDS: BACITRACIN OINT 0.9 GM PACK TOP SCH ×2 (09:10→15:37)
[2017-06-08] MEDS: ZINC OXIDE PASTE 113 GM TUBE TOP SCH (09:10)
[2017-06-08] MEDS: APIXABAN 2.5 MG TABLET PO SCH (09:10)
[2017-06-08] MEDS: PANTOPRAZOLE 40 MG TABLET PO SCH (09:10)
[2017-06-08 17:20] VITALS: BP 124/65
== END 2017-06-08 18:36 | disposition left against medical advice (07) | DRG 813 ==
LOC: EDBD → EDUNIT# → N.ED 14:54 → N.EDINP 16:40 → N.5E 19:05